=== PATIENT | female | born 1985 | race Caucasian/White ===

== ENCOUNTER 2016-11-06 19:56 | Emergency (ER) | payer SELFPAY ==
[~2016-11-06] VITALS: Ht 160 cm; Wt 77.6 kg
[2016-11-06 20:37] VITALS: BP 126/84
--- NOTE | 2016-11-06 21:14 | NUR ---
TO ER BED 4
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
[2016-11-06 22:30] VITALS: BP 116/72
== END 2016-11-06 22:30 | disposition home or self-care (01) ==
LOC: MED 19:56
DX: S81.812A Laceration without foreign body, left lower leg, initial encounter (principal); S81.811A Laceration without foreign body, right lower leg, initial encounter; W54.0XXA Bitten by dog, initial encounter; Y93.89 Activity, other specified; Y92.830 Public park as the place of occurrence of the external cause; Y99.8 Other external cause status